=== PATIENT | male | born 1985 | race African-American/Black ===

== ENCOUNTER 2017-04-25 19:25 | Emergency (ER) | payer SELFPAY | END 2017-04-25 19:30 | disposition left against medical advice (07) | LOC: ER 19:25 | DX: Z53.21 Procedure and treatment not carried out due to patient leaving prior to being seen by health care provider (principal) ==

== ENCOUNTER 2017-04-26 00:18 | Emergency (ER) | payer SELFPAY ==
[~2017-04-26] VITALS: Ht 185.4 cm; Wt 91.0 kg
[2017-04-26] MEDS ORDERED: DICYCLOMINE 10 MG/5 ML ORAL SYR PO STA (01:10)
[2017-04-26] MEDS ORDERED: VISCOUS LIDOCAINE 2% 15 ML UDC PO STA (01:10)
[2017-04-26] MEDS ORDERED: KETOROLAC 30MG/ML VIAL IV STA (01:10)
[2017-04-26] MEDS ORDERED: FAMOTIDINE 20MG/2ML VIAL IV STA (01:10)
[2017-04-26] MEDS ORDERED: SODIUM CHLORIDE 0.9% 1,000 ML IV ONE (01:10)
[2017-04-26] MEDS ORDERED: MAGNESIUM/ALUMINUM HYDROXIDE/SIMETHICONE 30ML UDC PO STA (01:10)
[2017-04-26] MEDS ORDERED: ONDANSETRON HCL 4MG/2ML VIAL IV STA (01:10)
[2017-04-26 01:51] LABS: CHLORIDE 101 mEq/L (98-107)
[2017-04-26 01:52] LABS: BASOPHILS % 0.3 % (0.0-2.0); EOSINOPHILS % 1.5 % (0.0-5.0); HEMATOCRIT. 44.1 % (42.0-52.0); HEMOGLOBIN. 14.9 g/dL (14.0-18.0); LYMPHOCYTES % 23.8 % (20.0-50.0); MEAN CORPUSCULAR HEMOGLOBIN 29.7 pg (28.0-32.0); MEAN CORPUSCULAR VOLUME 87.9 fL (80.0-94.0); MEAN PLATELET VOLUME 7.8 fl (7.4-10.4); NEUTROPHILS % 64.4 % (40.0-76.0); PLATELET 217 x1000/uL (130-400); RED BLOOD CELL COUNT 5.01 mill/uL (4.7-6.1); RED CELL DISTRIBUTION WIDTH 13.5 % (11.6-14.6)
[2017-04-26 01:54] LABS: INR 1.2; PROTHROMBIN TIME 12.5 sec (9.4-11.6)
[2017-04-26 02:00] LABS: CARBON DIOXIDE 28 mEq/L (21-32)
[2017-04-26 03:46] VITALS: BP 132/75
== END 2017-04-26 03:53 | disposition home or self-care (01) ==
LOC: ER 00:18
DX: R10.13 Epigastric pain (principal); R19.7 Diarrhea, unspecified; R11.2 Nausea with vomiting, unspecified; R03.0 Elevated blood-pressure reading, without diagnosis of hypertension; F17.210 Nicotine dependence, cigarettes, uncomplicated
CPT/HCPCS: 36415; 80053; 83690; 85025; 85610; 96361; 96374; 96375; 99285; J1885; J2405; J3490; Z7610; J7030

== ENCOUNTER 2018-09-05 12:01 | Emergency (ER) | payer MEDICAID ==
[~2018-09-05] VITALS: Ht 182.9 cm; Wt 70.0 kg
[2018-09-05] MEDS ORDERED: IBUPROFEN 600MG TABLET PO ONE (12:30)
[2018-09-05 12:50] VITALS: BP 127/71
== END 2018-09-05 12:51 | disposition left against medical advice (07) ==
LOC: ER 12:01
DX: N50.812 Left testicular pain (principal); K40.90 Unilateral inguinal hernia, without obstruction or gangrene, not specified as recurrent
CPT/HCPCS: 99283

== ENCOUNTER 2018-12-23 13:04 | Emergency (ER) | payer SELFPAY ==
[~2018-12-23] VITALS: Ht 185.4 cm; Wt 86.0 kg
[2018-12-23] MEDS ORDERED: LIDOCAINE HCL/PF 1% 10 MG/ML 5ML VIAL IJ ONE (19:30)
[2018-12-23] MEDS ORDERED: CEFTRIAXONE SODIUM 1 G/VIAL IM ONE (19:30)
[2018-12-23] MEDS ORDERED: TETANUS, DIPHTHERIA, PERTUSSIS VAC/PF 0.5ML (>7YR OLD) IM ONE (19:30)
[2018-12-23] MEDS ORDERED: BACITRACIN ZINC OINT UDPKT TOP ONE (19:30)
[2018-12-23] MEDS ORDERED: LIDOCAINE HCL 1% 20ML VIAL (Pyxis) INJ INFIL ONE (19:30)
[2018-12-23] MEDS ORDERED: IBUPROFEN 600MG TABLET PO ONE (19:30)
[2018-12-23] MEDS ORDERED: TRAMADOL 50MG TABLET PO ONE (19:30)
[2018-12-23] MEDS ORDERED: SULFAMETHOXAZOLE/TRIMETHOPRIM 400/80MG TAB PO ONE (19:30)
[2018-12-23] MEDS: BACITRACIN 15GM TUBE TOP NR ×2 (21:05→22:25)
[2018-12-23 23:01] VITALS: BP 108/62
== END 2018-12-23 23:01 | disposition home or self-care (01) ==
LOC: ER 13:04
DX: S90.822A Blister (nonthermal), left foot, initial encounter (principal); S80.821A Blister (nonthermal), right lower leg, initial encounter; L03.116 Cellulitis of left lower limb; L03.115 Cellulitis of right lower limb; X58.XXXA Exposure to other specified factors, initial encounter; Y93.89 Activity, other specified; Y92.89 Other specified places as the place of occurrence of the external cause; Y99.8 Other external cause status
CPT/HCPCS: 90471; 90715; 96372; 99284; J0696; J3490; Z7610